=== PATIENT | female | born 1990 | race Two or more races ===

== ENCOUNTER 2019-11-18 12:26 | Emergency (ER) | payer OTHER ==
[~2019-11-18] VITALS: Ht 160 cm; Wt 77.1 kg
[2019-11-18 12:27] VITALS: BP 122/81
--- NOTE | 2019-11-18 13:32 | Emergency Room Report ---
History of Present Illness General Chief Complaint: General Complaint Source: Patient Present Illness HPI 29 YO female with no significant PMHx. or familial medical hx presents to the ED brought by ambulance from work after episode of feeling weak/light headed, near syncope, with chills and diarrhea. Pt. reports initial onset of her symptoms was the day prior. She also reports having a diffuse WHEELER that is 7/10 in severity,dull in nature and waxes and wanes. Pt. denies sudden onset of her WHEELER. She denies paresthesias, slurred speech, unilateral muscle weakness or facial droop. Pt. reports taking Tylenol. Pt. reports She has been having chills but hasn't checked her temperature. She denies knowing persons with similar symptoms. She denies blood in the stool she reports very watery stools and estimates having approximately 4 bowel movements since this morning. Patient denies recent antibiotic use. She denies abdominal pain or tenderness. She denies or suspicion of . Patient reports that she is currently on her period. Patient also reports that she believes she may have had allergies yesterday as she had notable tearing and runny nose that was primarily on the right side. She reports some transient blurred vision. Denies hx of WHEELER's. She denies neck pain or stiffness. She denies CP or palpitations. Pt. reports she has not been drinking as much water as she normally does. She also reports increased stress as she has a very important exam coming up that she has been studying months for. She denies hx of anxiety. She denies Coughing, SOB, or wheezing. Denies recent travel. Denies contact with persons who have tested positive for or are under investigation/quarantine for COVID-19. Allergies: Coded Allergies: No Known Allergies (Unverified , 11/18/19) COVID-19 Screening Contact w/high risk pt: No Experienced COVID-19 symptoms?: Yes COVID-19 Testing performed PRESSURE DISPATCHER: No Patient History Past Medical History: see triage record Past Surgical History: none Pertinent Family History: none Last Menstrual Period: on her period right now Now: No Reviewed Nursing Documentation: PMH: Agreed; PSxH: Agreed Nursing Documentation-PMH Past Medical History: No History, Except For Review of Systems All Other Systems: negative except mentioned in HPI Physical Exam Vital Signs Date Time Temp Pulse Resp B/P (MAP) Pulse Ox O2 Delivery O2 Flow Rate FiO2 11/18/19 12:20 97.9 78 20 127/72 (90) 100 Room Air Sp02 EP Interpretation: reviewed, normal General Appearance: no apparent distress, alert, GCS 15, non-toxic Head: normocephalic, atraumatic Eyes: bilateral eye normal inspection, bilateral eye PERRL, bilateral eye other - no photophobia, normal visual field testing ENT: hearing grossly normal, normal voice Neck: full range of motion, no meningismus, no bony tend Respiratory: chest non-tender, lungs clear, normal breath sounds, speaking full sentences Cardiovascular #1: normal peripheral pulses, regular rate, rhythm, no edema, normal capillary refill Cardiovascular #2: 2+ radial (R), 2+ radial (L) Gastrointestinal: normal bowel sounds, non tender, soft, no peritonitis, non- distended, no guarding Rectal: deferred Genitourinary: normal inspection, no CVA tenderness Musculoskeletal: back normal, normal range of motion, gait/station normal, non- tender Neurologic: alert, motor strength/tone normal, oriented x3, sensory intact, responsive, speech normal, normal gait, grossly normal, no focal defects, other - no ataxia Psychiatric: normal inspection, judgement/insight normal, memory normal Skin: no rash, normal color Medical Decision Making PA Attestation Dr. Rivera Is my supervising Physician whom patient management has been discussed with. Diagnostic Impression: Primary Impression: Dehydration, mild Additional Impression: Diarrhea Qualified Codes: R19.7 - Diarrhea, unspecified ER Course 29 YO female with no significant PMHx. or familial medical hx presents to the ED brought by ambulance from work after episode of feeling weak/light headed, near syncope, with chills and diarrhea. Pt. reports initial onset of her symptoms was the day prior. She also reports having a diffuse WHEELER that is 7/10 in s everity,dull in nature and waxes and wanes. Pt. denies sudden onset of her WHEELER. She denies paresthesias, slurred speech, unilateral muscle weakness or facial droop. Pt. reports taking Tylenol. Pt. reports She has been having chills but hasn't checked her temperature. She denies knowing persons with similar symptoms. She denies blood in the stool she reports very watery stools and estimates having approximately 4 bowel movements since this morning. Patient denies recent antibiotic use. She denies abdominal pain or tenderness. She denies or suspicion of . Patient reports that she is currently on her period. Patient also reports that she believes she may have had allergies yesterday as she had notable tearing and runny nose that was pr imarily on the right side. She reports some transient blurred vision. Denies hx of WHEELER's. She denies neck pain or stiffness. She denies CP or palpitations. Pt. reports she has not been drinking as much water as she normally does. She also reports increased stress as she has a very important exam coming up that she has been studying months for. She denies hx of anxiety. She denies Coughing, SOB, or wheezing. Denies recent travel. Denies contact with persons who have tested positive for or are under investigation/quarantine for COVID-19. Ddx considered but are not limited to GE, colitis, acute appendicitis, cardiac etiology, migraine, acute intracranial process, hypovolemia/dehydration, , vaso-vagal reflex just to name a few. Vital signs: pt. is afebrile, H&PE are most consistent with GE most likely viral in etiology, no evidence to suggest acute abdomen on physical exam. Pt. non-toxic in appearance, no focal neurological deficits, NAD. Pt. tolerates oral fluids. ORDERS: -Urine Hcg: Negative -UA: Blood and RBC's C/W being on period. -CBC: WNL -BMP: WNL ED INTERVENTIONS: -Bentyl PO -Migraine Cocktail: Toradol, Benadryl & Reglan -PT. reports resolution of her symptoms after 1 liter NS and migraine cocktail. -I do not identify an emergent condition at this time. With current presentation, pt. is stable for close outpatient follow up and conservative treatment. D/w pt. to return promptly to ED with worsening or new symptoms.- Pt. verbalizes' understanding and agreement with proposed treatment plan. DISCHARGE: At this time pt. is stable for d/c to home. Will provide printed patient care instructions, and any necessary prescriptions. Care plan and follow up instructions have been discussed with the patient prior to discharge. Labs Test 11/18/19 12:45 11/18/19 14:35 11/18/19 15:32 11/18/19 15:55 Urine Color Pale yellow Urine Appearance Clear Urine pH 6 (4.5-8.0) Urine Specific [place] 1.010 (1.005-1.035) Urine Protein Negative (NEGATIVE) Urine Glucose (UA) Negative (NEGATIVE) Urine Ketones Negative (NEGATIVE) Urine Blood 4+ (NEGATIVE) Urine Nitrite Negative (NEGATIVE) Urine Bilirubin Negative (NEGATIVE) Urine Urobilinogen Normal MG/DL (0.0-1.0) Urine Leukocyte Esterase Negative (NEGATIVE) Urine RBC 30-40 /HPF (0 - 2) Urine WBC 0-2 /HPF (0 - 2) Urine Squamous Epithelial Cells Occasional /LPF Urine Bacteria Occasional /HPF (NONE) Urine HCG, Qualitative Negative (NEGATIVE) Sodium Level 138 MMOL/L (136-145) Potassium Level 3.7 MMOL/L (3.5-5.1) Chloride Level 105 MMOL/L (98-107) Carbon Dioxide Level 24 MMOL/L (21-32) Anion Gap 10 mmol/L (5-15) Blood Urea Nitrogen 14 mg/dL (7-18) Creatinine 0.7 MG/DL (0.55-1.30) Estimat Glomerular Filtration Rate > 60 mL/min (>60) Glucose Level 92 MG/DL (74-106) Calcium Level 8.5 MG/DL (8.5-10.1) White Blood Count 9.4 K/UL (4.8-10.8) Red Blood Count 4.17 M/UL (4.20-5.40) Hemoglobin 13.1 G/DL (12.0-16.0) Hematocrit 37.7 % (37.0-47.0) Mean Corpuscular Volume 90 FL (80-99) Mean Corpuscular Hemoglobin 31.5 PG (27.0-31.0) Mean Corpuscular Hemoglobin Concent 34.8 G/DL (32.0-36.0) Red Cell Distribution Width 10.9 % (11.6-14.8) Platelet Count 236 K/UL (150-450) Mean Platelet Volume 7.3 FL (6.5-10.1) Neutrophils (%) (Auto) 56.4 % (45.0-75.0) Lymphocytes (%) (Auto) 28.0 % (20.0-45.0) Monocytes (%) (Auto) 9.2 % (1.0-10.0) Eosinophils (%) (Auto) 5.4 % (0.0-3.0) Basophils (%) (Auto) 1.0 % (0.0-2.0) EKG Diagnostic Results Rate: normal - 91 Rhythm: NSR ST Segments: no acute changes ASA given to the pt in ED: No PA Scribe Text This Interpretation was scribed by KATHLEEN Beal. Last Vital Signs Date Time Temp Pulse Resp B/P (MAP) Pulse Ox O2 Delivery O2 Flow Rate FiO2 11/18/19 12:20 97.9 78 20 127/72 (90) 100 Room Air Disposition: HOME, SELF-CARE Condition: Stable Scripts Aspirin/Acetaminophen/Caffeine (EXCEDRIN MIGRAINE GELTAB) 1 Each Tablet 1 EACH PO Q6HR, #30 TAB Prov: Maria Victoria Beal 11/18/19 Dicyclomine Hcl* (DICYCLOMINE HCL*) 10 Mg Capsule 10 MG ORAL TID, #9 CAP Prov: Maria Victoria Beal 11/18/19 Referrals: Jeni [facility] Departure Forms: Return to Work Return to Work Date: Nov 22, 2019 Other Restrictions: May return Sooner if Symptoms have resolved. Return to Full Activity: Nov 22, 2019 Work Restrictions: None Patient Instructions: Dehydration, Adult, [id number], Diarrhea, Adult, [id number], Food Choices to Help Relieve Diarrhea, Adult Additional Instructions: Take medications as directed. Follow up with a Primary Care Provider in 3-5 days, even if your symptoms have resolved. --Please review list of primary care clinics, if you do not already have a primary care provider Return sooner to ED if new symptoms occur, or current symptoms become worse. - Please note that this Emergency Department Report was dictated using [employer] marketing [employer] software, occasionally this can lead to erroneous entry secondary to interpretation by the dictation equipment. Maria Victoria Beal Nov 18, 2019 13:32
[2019-11-18 13:43] VITALS: BP_SYST 112; BP_SYST 117; BP_SYST 119; BP_DIAS 75; BP_DIAS 79; BP_DIAS 80
[2019-11-18] MEDS ORDERED: Dicyclomine 10mg Cap ORAL ONE (13:45)
[2019-11-18 13:48] LABS: APPEARANCE,URINE CLEAR; BILIRUBIN, URINE NEGATIVE (NEGATIVE); COLOR,URINE PALE YELLOW; GLUCOSE, URINE (UA) NEGATIVE (NEGATIVE); KETONES,URINE NEGATIVE (NEGATIVE); LEUKOCYTE ESTERASE ,URINE NEGATIVE (NEGATIVE); NITRITE,URINE NEGATIVE (NEGATIVE); PH,URINE 6 (4.5-8.0); PROTEIN,URINE NEGATIVE (NEGATIVE); UROBILINOGEN,URINE NORMAL MG/DL (0.0-1.0)
[2019-11-18] MEDS ORDERED: DiphenhydrAMINE 50mg/ml Inj IVP ONE (15:15)
[2019-11-18] MEDS ORDERED: Metoclopramide 10mg/2ml Inj IVP ONE (15:15)
[2019-11-18] MEDS ORDERED: Ketorolac 30mg Inj IV ONE (15:15)
[2019-11-18 15:48] VITALS: BP 120/86
[2019-11-18 16:18] LABS: ANION GAP 10 mmol/L (5-15); BLOOD UREA NITROGEN 14 mg/dL (7-18); CALCIUM 8.5 MG/DL (8.5-10.1); CARBON DIOXIDE 24 MMOL/L (21-32); CHLORIDE 105 MMOL/L (98-107); CREATININE 0.7 MG/DL (0.55-1.30); POTASSIUM 3.7 MMOL/L (3.5-5.1); SODIUM 138 MMOL/L (136-145)
[2019-11-18 16:24] LABS: EOSINOPHILS % (AUTO) 5.4 % (0.0-3.0); HEMATOCRIT 37.7 % (37.0-47.0); HEMOGLOBIN 13.1 G/DL (12.0-16.0); MEAN CORPUSCULAR VOLUME 90 FL (80-99); MONOCYTES % (AUTO) 9.2 % (1.0-10.0); NEUTROPHILS % (AUTO) 56.4 % (45.0-75.0); PLATELET COUNT 236 K/UL (150-450); RED BLOOD COUNT 4.17 M/UL (4.20-5.40); RED CELL DISTRIBUTION WIDTH 10.9 % (11.6-14.8); WHITE BLOOD COUNT 9.4 K/UL (4.8-10.8)
[2019-11-18] MEDS ORDERED: EXCEDRIN MIGRA1 EACH PO (16:41)
[2019-11-18] MEDS ORDERED: DICYCLOMINE HCL10 MG ORAL (16:41)
[2019-11-18 17:00] VITALS: BP 111/64
== END 2019-11-18 17:00 | disposition home or self-care (01) ==
LOC: EDBD 12:26 → EMR 12:45
DX: E86.0 Dehydration (principal); R19.7 Diarrhea, unspecified
CPT/HCPCS: 36415; 80048; 81003; 81025; 85025; 93005; 96374; 96375; 99284; J1200; J1885; J2765; J7040